=== PATIENT | male | born 1995 | race Caucasian/White ===

== ENCOUNTER 2018-01-16 01:15 | Emergency (ER) | payer OTHER ==
--- NOTE | 2018-01-16 01:24 | EDPHY ---
H & P Stated Complaint: allergic rxn Time Seen by Provider: 01/16/18 01:24 HPI/ROS: HPI CHIEF COMPLAINT: Possible allergic reaction. 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 He states that he got somewhat anxious and his throat felt a little tight so decided come to the emergency room. Upon arrival to the emergency room he is not having trouble breathing no trouble swallowing, no change in phonation, not drooling, no stridor. Otherwise feels well. He did take 2 Benadryl prior to arrival. He did not administer his epinephrine pen. Past Medical History: Denies significant medical history except for severe allergic reaction to avocados Past Surgical History: Denies any significant surgical history Social History: Denies any drug use alcohol tobacco. [employer] student. Family History: Noncontributory ROS REVIEW OF SYSTEMS: A comprehensive 10 point review of systems is otherwise negative aside from elements mentioned in the history of present illness. Exam Constitutional appears well nontoxic no acute distress triage nursing summary reviewed, vital signs reviewed, awake/alert. Eyes normal conjunctivae and sclera, EOMI, PERRLA. HENT posterior pharynx is normal. Not drooling able to handle secretions no change in phonation, normal inspection, atraumatic, moist mucus membranes, no epistaxis, neck supple/ no meningismus, no raccoon eyes. Respiratory no stridor, no wheezing, clear to auscultation bilaterally, normal breath sounds, no respiratory distress, no wheezing. Cardiovascular rate normal, regular rhythm, no murmur, no edema, distal pulses normal. Gastrointestinal soft, non-tender, no rebound, no guarding, normal bowel sounds, no distension, no pulsatile mass. Genitourinary no CVA tenderness. Musculoskeletal no midline vertebral tenderness, full range of motion, no calf swelling, no tenderness of extremities, no meningismus, good pulses, neurovascularly intact. Skin no urticaria pink, warm, & dry, no rash, skin atraumatic. Neurologic awake, alert and oriented x 3, AAOx3, moves all 4 extremities equally, motor intact, sensory intact, CN II-XII intact, normal cerebellar, normal vision, normal speech. Psychiatric normal mood/affect. Heme/Lymph/Immune no lymphadenopathy. Differential Diagnosis: Includes but is not limited to in a particular order allergic reaction, severe allergic reaction, anaphylaxis, anaphylactic shock Medical Decision Making: Plan for this patient p.o. Prednisone, p.o. Pepcid, your he took 50 mg p.o. Benadryl. Given that his symptoms are acutely mild at this time will continue to watch very closely. If his progression of symptoms will place an IV and accordingly treat. At this time I do not feel that he needs IM epinephrine. Re-evaluation: 0320: Patient has had any further signs of allergic reaction. He denies rash denies trouble breathing denies trouble swallowing. He is eager for discharge. He has been monitored over here in the emergency room for over 2 hr. He is requesting discharge. His symptoms were extremely mild when he arrived here. There has been no progression. I feel comfortable allowing to go home. Prednisone, Pepcid and Benadryl for the next 3 days. He already has epinephrine pens. I do recommend he return emergency room if he has any further signs of allergic reaction or progression of symptoms. He is comfortable this plan. 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 I did discuss return precautions especially about rebound reaction if he has rebound symptoms in 4-6 hours or any worsening symptoms he needs return to the emergency room. He understands use epinephrine pen if need be if it severe. Also call 911 if severe. At time of discharge no trouble breathing, no trouble swelling, no rash. Feels fine vitals are stable. Source: Patient - Personal History Current Tetanus Diphtheria and Acellular Pertussis (TDAP): Yes - Medical/Surgical History Hx Asthma: No Hx Chronic Respiratory Disease: No Hx Diabetes: No Hx Cardiac Disease: No Hx Renal Disease: No Hx Cirrhosis: No Hx Alcoholism: No Hx HIV/AIDS: No Hx Splenectomy or Spleen Trauma: No Other PMH: anaphylaxsis - Social History Smoking Status: Never smoked Constitutional: Initial Vital Signs Temperature (C) 36.4 C 01/16/18 01:19 Heart Rate 64 01/16/18 01:19 Respiratory Rate 16 01/16/18 01:19 Blood Pressure 151/77 H 01/16/18 01:19 O2 Sat (%) 97 01/16/18 01:19 O2 Delivery Mode Room Air Allergies/Adverse Reactions: avocado Allergy (Verified 01/16/18 01:19) Home Medications: Medication Instructions Recorded Advair 100/50 (*) 01/16/18 Famotidine [Pepcid 20 MG (*)] 20 mg PO BID #6 tab 01/16/18 diphenhydrAMINE [Benadryl 25 MG 25 mg PO BID #6 tab 01/16/18 (*)] predniSONE 60 mg PO DAILY #9 tab 01/16/18 Medical Decision Making - Data Points Medications Given: Discontinued Medications Famotidine (Pepcid) 20 mg PO EDNOW ONE Stop: 01/16/18 01:27 Last Admin: 01/16/18 01:34 Dose: 20 mg Prednisone (Prednisone) 60 mg PO EDNOW ONE Stop: 01/16/18 01:27 Last Admin: 01/16/18 01:34 Dose: 60 mg Departure - Departure Disposition: Home, Routine, Self-Care Clinical Impression: Allergic reaction Qualifiers: Encounter type: initial encounter Qualified Code(s): T78.40XA - Allergy, unspecified, initial encounter Condition: Good Instructions: Urticaria (ED), Food Allergy (ED), Anaphylaxis (ED), Allergies ( ED) Additional Instructions: 1. Return emergency room if he develops any worsening symptoms includes trouble breathing, trouble swelling, worsening signs of allergic reaction or rash. 2. Call 911 if it is severe. Prescriptions: diphenhydrAMINE [Benadryl 25 MG (*)] 25 mg PO BID #6 tab Famotidine [Pepcid 20 MG (*)] 20 mg PO BID #6 tab predniSONE 60 mg PO DAILY #9 tab
[2018-01-16] MEDS ORDERED: FAMOTIDINE 20 MG TAB PO ONE (01:26)
[2018-01-16] MEDS ORDERED: predniSONE 20 MG TAB PO ONE (01:26)
[2018-01-16 03:25] VITALS: BP 113/76
== END 2018-01-16 03:31 | disposition home or self-care (01) ==
DX: T78.40XA Allergy, unspecified, initial encounter (principal)
CPT/HCPCS: J7512